=== PATIENT | female | born 1960 | race Caucasian/White ===

== ENCOUNTER 2020-12-05 07:25 | Day surgery (SDC) | payer OTHER, SELFPAY ==
[2020-11-30 12:55] VITALS: BMI 19.7
--- NOTE | 2020-12-05 07:45 | HO.ANESPROP2 ---
HPI - Anesthesia Eval Consult details Narrative: 60yo female patient here for colonoscopy [facility] Past Medical History Medical History Hypercholesterolemia Hypothyroidism Family History Family history of problems with anesthesia: No Surgical History Surgical History History of total left hip replacement Hx of blepharoplasty Hx of section Hx of colonoscopy History of Problems with Anesthesia: No Social History Social History Are you a primary childcare provider to a significant other at home: No Do you presently have visiting nurse or other home services: No Advance Directives: No Advance Directives Information Provided: No Advance Directives on File: No Recently lost weight without trying: No Meds Allergies Allergy/AdvReac Type Severity Reaction Status Date / Time No Known Allergies Allergy Verified 12/05/20 07:48 Active Medications: Current Medications Generic Name Dose Route Start Last Admin Trade Name Freq PRN Reason Stop Dose Admin Sodium Biphosphate/Sodium Phosphate 133 ml 12/05/20 07:34 Sodium Phosphate,[place]-Dibasic 133 Ml Enema MT ONCE PRN Poor Colonoscopy Prep Results Home Medications Medication Instructions Recorded Confirmed Last Taken Type calcium carbonate [Calcium 600] 600 mg PO DAILY 11/30/20 11/30/20 Unknown History cholecalciferol (vitamin D3) 25 mcg PO DAILY 11/30/20 11/30/20 Unknown History [Vitamin D3] diphenhydramine-acetaminophen 1 tab PO BEDTIME PRN 11/30/20 11/30/20 Unknown History [Tylenol PM Extra Strength] levothyroxine [Synthroid] 1 tab PO DAILY 11/30/20 11/30/20 Unknown History Probiotic PO DAILY 12/05/20 Unknown History evening primrose oil [Evening 500 mg PO DAILY 12/05/20 12/05/20 Unknown History [place]] Exam Exam Date and Time: December 05, 2020 0745 Height,Weight and Vital Signs: Height 5 ft 6 in Weight 55.338 kg Vital Signs Temp Pulse Resp BP Pulse Ox 12/05/20 07:53 98.1 F 69 18 124/69 99 Airway Mallampati Class: II (Small mouth) TM Dist: >3cm Neck ROM: Full Loose/Missing/Broken Teeth: No Heart: RRR Lungs: CTAB Assessment and Plan Assessment Anesthesia Assessment: Anesthesia Plan Discussed and Chart Reviewed Final Anesthetic Review NPO: Yes ASA Class: II Final Preanesthetic Review: No Changes in Pt Med Stat, Meds/Allgs Chart Reviewed, Consent Obtained/Reviewed and Anes Risks/Benef Reviewed Patient Risk: Low Procedure Risk: Low Assessment/Block/Sedation in SS: Assess/Block/Sedation-SS Anesthetic Plan Anesthetic Plan: MAC: Disposition: Standard PACU
[2020-12-05 07:53] VITALS: BP 124/69; PULSE 69; RESP 18; TEMP 36.7; O2SAT 99
[2020-12-05] MEDS: Lactated Ringers 1,000 ML 100 ML IVCONT (08:08)
--- NOTE | 2020-12-05 09:15 | PM.OP ---
Brief Operative Note Date of Service: 12/05/20 Pre-op diagnosis: Screening Post-op diagnosis: other (Colon polyps) Procedure: Colonoscopy to the cecum and TI with biopsies and removal of polyps Surgeon: Albin Emery Anesthesia: MAC Estimated blood loss (mL): 4.0 Pathology: other (A. Polyp at 40cm B. Polyp at 30cm.) Condition: stable Disposition: PACU
[2020-12-05 09:17] VITALS: BP 101/56; PULSE 71; RESP 12; TEMP 36.1; O2SAT 100
--- NOTE | 2020-12-05 09:32 | OP_ITS ---
SURGEON: Albin Emery MD INDICATIONS: The patient presents for evaluation of colorectal cancer screening. Full consent has been obtained from her for this, including risks of bleeding and perforation. PREOPERATIVE DIAGNOSIS: Colorectal cancer screening. POSTOPERATIVE DIAGNOSIS: PROCEDURE PERFORMED: Colonoscopy to cecum and terminal ileum with biopsy and removal of polyps. ESTIMATED BLOOD LOSS: COMPLICATIONS: ANESTHESIA: Monitored anesthesia care. ASSISTANTS: SPECIMENS: POSTOPERATIVE DIAGNOSES: Colorectal cancer screening, small colon polyps, sigmoid diverticulosis, and internal hemorrhoids. DESCRIPTION OF PROCEDURE: The patient was placed in the left lateral decubitus position. The digital rectal exam revealed no abnormalities. The Olympus video pediatric colonoscope was entered into the rectum and advanced easily to the cecum. Once in the cecum, I did identify normal-appearing cecal pouch with appendiceal orifice and a normal-appearing ileocecal valve. The terminal ileum was cannulated and appeared normal. The scope was withdrawn back in the colon. The entire cecum and ileocecal valve appeared normal. There was transillumination of light deep in the right lower quadrant. The scope was slowly withdrawn assessing all mucosal surfaces carefully. Preparation was excellent. At 30 cm and at 40 cm, were flat less than 5 mm polyps, which were each biopsied and completely removed with cold biopsy forceps. I did not visualize any other polyps, colitis, nor angiodysplasia. There was a mild amount of sigmoid diverticulosis. In the rectum, scope was retroflexed visualizing small internal hemorrhoids, but no other pathology. The rectal mucosa appeared normal. The scope was straightened out and withdrawn from the patient. She tolerated the procedure well and was returned to the recovery area in stable condition. IMPRESSION: 1. Small colon polyps, status post biopsy and removal. 2. Diverticulosis. 3. Internal hemorrhoids. PLAN: The results of the pathology will be checked. If these are tubular adenoma, I would recommend a followup colonoscopy in 5 years. If they are only hyperplastic, I would recommend a followup colonoscopy in 10 years. She will otherwise see me on a p.r.n. basis. MD KM Monte/BON / [id number]
[2020-12-05 09:33] VITALS: BP 127/60; PULSE 62; RESP 16; TEMP 36.1; O2SAT 100
== END 2020-12-05 10:32 | disposition home or self-care (01) ==
PROVIDERS: PCP Hospitalist; Visit Provider Internal Medicine
PROC: 0DJD8ZZ Inspection of Lower Intestinal Tract, Via Natural or Artificial Opening Endoscopic (ICD-10-PCS; CPT 45378; principal; 2020-12-05 08:30)
DX: Z12.11 Encounter for screening for malignant neoplasm of colon (principal); D12.5 Benign neoplasm of sigmoid colon; K57.30 Diverticulosis of large intestine without perforation or abscess without bleeding; K64.8 Other hemorrhoids; E78.00 Pure hypercholesterolemia, unspecified; E03.9 Hypothyroidism, unspecified; Z79.899 Other long term (current) drug therapy
CPT/HCPCS: 45380; 88305